=== PATIENT | female | born 2000 | race Caucasian/White ===

== ENCOUNTER 2025-03-13 12:14 | Emergency (ER) | payer BC, OTHER ==
[2025-03-13] MEDS ORDERED: ALBUTEROL SO4 0.083% IH SOL 2.5 MG/3 ML VIAL.NEB. NEB ONE ×2 (12:22→12:41)
[2025-03-13 12:26] VITALS: BMI 21.2
[2025-03-13] MEDS: LACTATED RINGERS SOLUTION 1000 ML INFUS.BAG IV ONE ×2 (12:32→16:12)
[2025-03-13] MEDS: DEXAMETHASONE SOD PHOSPHATE 10 MG/1 ML VIAL IVPUSH ONE (12:51)
[2025-03-13 12:55] VITALS: RESP 18
[2025-03-13 17:14] VITALS: BP 110/76; PULSE 85; TEMP 98
== END 2025-03-13 17:05 | disposition home or self-care (01) ==
LOC: JER 12:14
PROC: 3E033GC Introduction of Other Therapeutic Substance into Peripheral Vein, Percutaneous Approach (ICD-10-PCS; principal; 2025-03-13)
DX: R21 Rash and other nonspecific skin eruption (principal); R06.02 Shortness of breath; T78.40XA Allergy, unspecified, initial encounter
CPT/HCPCS: 93005; 93010; 99284-25; J1100